=== PATIENT | male | born 1975 | race African-American/Black ===

== ENCOUNTER 2017-07-21 13:35 | Emergency (ER) | payer OTHER ==
[~2017-07-21] VITALS: Ht 167.6 cm; Wt 81.7 kg
--- NOTE | ~2017-07-21 | EKG ---
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
--- NOTE | ~2017-07-21 | EKG ---
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
[~2017-07-21 13:35] MED LIST: CIPROFLOXACIN500 M1 PO; NORCO 5-325 TA1 EACH PO
[2017-07-21 14:09] LABS: ABSOLUTE NEUTROPHILS 2.5 thou/uL (1.4-8.2); BASOPHILS 1.6 % (0.0-2.0); EOSINOPHILS 2.8 % (0.0-3.0); HEMOGLOBIN 15.5 gm/dL (14.0-18.0); LYMPHOCYTES 38.7 % (24.0-44.0); MCH 31.4 pg (26.0-34.0); MCHC 34.4 g/dL (28.0-37.0); MCV 91.1 fL (80.0-100.0); MONOCYTES 7.2 % (1.0-8.0); PLATELET COUNT 206 thou/uL (150-400); POLYS 49.7 % (36.0-66.0); RBC 4.94 mil/uL (4.50-6.00); RDW 13.9 % (10.5-14.5)
[2017-07-21 14:25] LABS: ANION GAP 8 mmol/L (7-16); BUN 17 mg/dL (7-18); CALCIUM 9.2 mg/dL (8.5-10.1); CHLORIDE 103 mmol/L (98-107); CO2 28 mmol/L (21-32); CREATININE 1.4 mg/dL (0.7-1.3); GLUCOSE 127 mg/dL (74-106); SODIUM 139 mmol/L (136-145)
[2017-07-21 14:34] LABS: TROPONIN-I < 0.04 ng/mL (<0.06)
[2017-07-21 14:50] VITALS: BP 136/91
[2017-07-21] MEDS ORDERED: PROTONIX40 MG PO (16:24)
== END 2017-07-21 16:39 | disposition home or self-care (01) ==
LOC: ER 13:35
PROVIDERS: Emergency Medicine
DX: R07.2 Precordial pain (principal); R10.816 Epigastric abdominal tenderness; N28.9 Disorder of kidney and ureter, unspecified; J00 Acute nasopharyngitis [common cold]